=== PATIENT | male | born 1990 | race Caucasian/White ===

== ENCOUNTER 2022-08-09 11:42 | Emergency (ER) | payer SELFPAY ==
[2022-08-09] MEDS ORDERED: Diphtheria,Pertussis(Acell),Tetanus Vaccine 0.5 ML Syringe IM ONE (12:01)
[2022-08-09] MEDS ORDERED: Lidocaine 1% 20 ML MDV INJECT ONE (12:01)
[2022-08-09] MEDS ORDERED: Lidocaine 1% 10 ML MDV ONE (12:03)
== END 2022-08-09 13:12 | disposition home or self-care (01) ==
LOC: JD.ED 11:42
DX: S51.811A Laceration without foreign body of right forearm, initial encounter (principal); Z23 Encounter for immunization; W26.8XXA Contact with other sharp object(s), not elsewhere classified, initial encounter
CPT/HCPCS: 12006; 90471; 90715; 99282-25; 99283; J3490